=== PATIENT | male | born 1995 | race Caucasian/White ===

== ENCOUNTER 2021-05-10 08:51 | Emergency (ER) | payer OTHER ==
[2021-05-10] MEDS ORDERED: Tetracaine HCl/PF 0.5% 4 ML Bottle EYELF ONE (08:54)
[2021-05-10] MEDS ORDERED: Fluorescein 1 MG Ophth Strip EYELF ONE (08:54)
--- NOTE | 2021-05-10 09:04 | EDM.PDOC ---
ED HPI GENERAL MEDICAL PROBLEM - General Chief Complaint: Eye Problems Stated Complaint: SOMETHING IN L EYE Time Seen by Provider: 05/10/21 08:52 Source of Information: Reports: Patient History Limitations: Reports: No Limitations - History of Present Illness INITIAL COMMENTS - FREE TEXT/NARRATIVE: 25-year-old male no relevant past medical history presents for foreign body to l eft eye. Patient was cutting some metal and not wearing eye protection when he felt a shard of metal into his left eye. He has persistent foreign body sensation. He denies any changes in vision. This occurred roughly 1 hour prior to arrival. He is uncertain of his last tetanus vaccination. left eye Pain Score (Numeric/FACES): 7 - Related Data Allergies Allergy/AdvReac Type Severity Reaction Status Date / Time No Known Allergies Allergy Verified 05/10/21 09:05 Home Meds: Home Meds Polymyxin B Sulf/Trimethoprim [Polytrim Eye Drops] 1 drop OP Q6H 5 Days #1 bottle 05/10/21 [Rx] ED ROS GENERAL - Review of Systems Review Of Systems: Comprehensive ROS is negative, except as noted in HPI. ED EXAM GENERAL W FULL EYE - Physical Exam Exam: See Below Exam Limited By: No Limitations General Appearance: Alert, WD/WN, No Apparent Distress Eye Exam: Bilateral Eye: Other (PERRL, EOMI, <1-mm metallic FB noted at 5o'clock position L cornea, removed by Qtip easily, small area of increased fluorescene uptake where FB was removed without large corneal abrasion or ulceration) Ears: Hearing Grossly Normal Throat/Mouth: Normal Voice, No Airway Compromise Head: Atraumatic, Normocephalic Neck: Normal Inspection Respiratory/Chest: No Respiratory Distress, Lungs Clear, Normal Breath Sounds, No Accessory Muscle Use Cardiovascular: Normal Peripheral Pulses, Regular Rate, Rhythm Extremities: Normal Inspection Neurological: Alert, Normal Cognition, Normal Gait Psychiatric: Normal Affect, Normal Mood Skin Exam: Warm, Dry, Intact, Normal Color Course - Vital Signs Last Recorded V/S: Last Vital Signs Temp 96.7 F L 05/10/21 09:05 Pulse 79 05/10/21 09:05 Resp 17 05/10/21 09:05 BP 126/93 H 05/10/21 09:05 Pulse Ox 98 05/10/21 09:05 - Orders/Labs/Meds Orders: Active Orders 24 hr Category Date Time Status Vaccines to be Administered [RC] PER UNIT ROUTINE Care 05/10/21 09:06 Ordered Meds: Medications Discontinued Medications Generic Name Dose Route Start Last Admin Trade Name Katherin PRN Reason Stop Dose Admin Diphtheria/Tetanus/Acell Pertussis 0.5 ml 05/10/21 09:06 Diphtheria,Pertussis(Acell),Tetanus Vaccine 0.5 Ml Syringe IM 05/10/21 09:07 .ONCE ONE Fluorescein Sodium 1 mg 05/10/21 08:54 Fluorescein 1 Mg Ophth Strip EYELF 05/10/21 08:55 ONETIME ONE Tetracaine HCl 1 ml 05/10/21 08:54 Tetracaine Hcl/Pf 0.5% 4 Ml Bottle EYELF 05/10/21 08:55 ASDIRECTED ONE - Re-Assessments/Exams Free Text/Narrative Re-Assessment/Exam: 05/10/21 09:18 FB easily removed by Qtip; small area of increased uptake where metallic FB was removed. Boostrix ordered for tetanus prophylaxis. Antibiotic drops rx'ed for small abrasion. F/u info given and return precautions discussed Departure - Departure Time of Disposition: 09:12 Disposition: Home, Self-Care 01 Condition: Good Clinical Impression: Foreign body of left eye Qualifiers: Encounter type: initial encounter Qualified Code(s): T15.92XA - Foreign body on external eye, part unspecified, left eye, initial encounter - Discharge Information Prescriptions: Polymyxin B Sulf/Trimethoprim [Polytrim Eye Drops] 1 drop OP Q6H 5 Days #1 bottle Instructions: Eye Foreign Body, [id number] Referrals: PCP,None [Primary Care Provider] - Forms: ED Department Discharge Additional Instructions: You presented to the emergency department with a metallic objects in your left eye. The object was easily removed with a Q-tip. You have a very small corneal abrasion on exam so I have prescribed antibiotic drops sent to [facility] that you can use every 6 hours for the next 5 days. This is not because you have an infection but is rather to prevent infection. You also received a tetan us vaccination. These are good for 5 years. If you are having persistent pain or any changes in your vision and I would recommend following up with an arnp or rn training. Information is provided below. Dr. Kimani Dickson [facility] [address] [place] [address], [id number] [id number] [address] The following information is given to patients seen in the emergency department who are being discharged to home. This information is to outline your options for follow-up care. We provide all patients seen in our emergency department with a follow-up referral. The need for follow-up, as well as the timing and circumstances, are variable depending upon the specifics of your emergency department visit. If you don't have a primary care physician on staff, we will provide you with a referral. We always advise you to contact your personal physician following an emergency department visit to inform them of the circumstance of the visit and for follow-up with them and/or the need for any referrals to a consulting specialist. The emergency department will also refer you to a specialist when appropriate. This referral assures that you have the opportunity for follow-up care with a specialist. All of these measure are taken in an effort to provide you with optimal care, which includes your follow-up. Under all circumstances we always encourage you to contact your private physician who remains a resource for coordinating your care. When calling for follow-up care, please make the office aware that this follow-up is from your recent emergency room visit. If for any reason you are refused follow-up, please contact the [facility] Emergency Department at and asked to speak to the emergency department charge nurse. Please follow up with your primary care physician. If you do not have a primary care physician, see below: [facility] [address] [place] [id number] [facility] [address] [place] [phone] [facility] [address] [place] [id number] Sepsis Event Note (ED) - Focused Exam Vital Signs: Vital Signs Temp Pulse Resp BP Pulse Ox 05/10/21 09:05 96.7 F L 79 17 126/93 H 98 - My Orders Last 24 Hours: My Active Orders 05/10/21 09:06 Vaccines to be Administered [RC] PER UNIT ROUTINE - Assessment/Plan Last 24 Hours: My Active Orders 05/10/21 09:06 Vaccines to be Administered [RC] PER UNIT ROUTINE
[2021-05-10] MEDS ORDERED: Diphtheria,Pertussis(Acell),Tetanus Vaccine 0.5 ML Syringe IM ONE (09:06)
== END 2021-05-10 09:33 | disposition home or self-care (01) ==
LOC: MW.ED 08:51
DX: T15.92XA Foreign body on external eye, part unspecified, left eye, initial encounter (principal); Z23 Encounter for immunization
CPT/HCPCS: 65220; 90471; 90715; 99283-25

== ENCOUNTER 2022-02-14 23:08 | Emergency (ER) | payer OTHER ==
[2022-02-14] MEDS ORDERED: diphenhydrAMINE 50 MG/ML SDV IVPUSH ONE (23:27)
[2022-02-14] MEDS ORDERED: methylPREDNISolone Sodium Succinate 125 MG/2 ML SDV IVPUSH ONE (23:28)
== END 2022-02-15 00:50 | disposition home or self-care (01) ==
LOC: MW.ED 23:08
DX: L50.9 Urticaria, unspecified (principal)
CPT/HCPCS: 96374; 96375; 99283; J1200; J2930; 99282